=== PATIENT | female | born 1990 | race Caucasian/White ===

== ENCOUNTER 2022-04-08 08:59 | Outpatient (CLI) | payer OTHER, SELFPAY | END 2022-04-08 09:00 | disposition home or self-care (01) | LOC: LKVREF 08:59 | PROVIDERS: PCP Emergency Medicine; Visit Provider Emergency Medicine | DX: Z00.00 Encounter for general adult medical examination without abnormal findings (principal); Z12.4 Encounter for screening for malignant neoplasm of cervix; Z11.3 Encounter for screening for infections with a predominantly sexual mode of transmission | CPT/HCPCS: 87624; 88175 ==

== ENCOUNTER 2023-06-08 09:34 | Outpatient (CLI) | payer BC, SELFPAY | END 2023-06-08 09:35 | disposition home or self-care (01) | LOC: NFLDREF 06-11 17:51 | PROVIDERS: PCP Emergency Medicine; Referring Provider Emergency Medicine; Visit Provider Emergency Medicine | DX: Z13.6 Encounter for screening for cardiovascular disorders (principal) | CPT/HCPCS: 80048; 80061 ==

== ENCOUNTER 2024-06-12 08:45 | Outpatient (CLI) | payer BC, SELFPAY | END 2024-06-12 08:46 | disposition home or self-care (01) | LOC: NFLDREF 06-14 11:49 | PROVIDERS: PCP Emergency Medicine; Referring Provider Emergency Medicine; Visit Provider Emergency Medicine | DX: E78.1 Pure hyperglyceridemia (principal); Z13.1 Encounter for screening for diabetes mellitus | CPT/HCPCS: 80061; 82947 ==